=== PATIENT | male | born 1950 | race Caucasian/White ===

== ENCOUNTER 2017-09-15 15:55 | Emergency (ER) | payer OTHER ==
[2017-09-15] MEDS ORDERED: PANTOPRAZOLE SODIUM 40 MG VIAL IVP ONE (16:10)
[2017-09-15] MEDS ORDERED: NS 500 ML IV ONE (16:10)
--- NOTE | 2017-09-15 16:28 | CPEKG ---
Heart Rate: 70 RR Interval: 857 P-R Interval: 160 QRSD Interval: 72 QT Interval: 404 QTC Interval: 436 P [place]: 35 QRS [place]: 49 T Wave [place]: 8 EKG Severity - BORDERLINE ECG - EKG Impression: SINUS RHYTHM EKG Impression: PROBABLE LEFT ATRIAL ABNORMALITY Electronically Signed By: Chip Moulton 15-Sep-2017 16:49:13
[2017-09-15 16:33] LABS: PLATELET COUNT 187 10^3/uL (150-400)
--- NOTE | 2017-09-15 16:33 | EDPHY ---
H & P Time Seen by Provider: 09/15/17 16:09 HPI/ROS: HPI Black tarry stools, headache, forgetfulness. 66-year-old male by private vehicle with his . This patient is from [facility]. He is currently visiting [place] for his son's graduation from college. He has a history of peptic ulcer disease and upper gastrointestinal bleeding. He reports today he had 2 black tarry stools. He reports he has been taking Pepto-Bismol. He also reports that he has had frontal headaches which she describes as aching and sharp over the last 1-2 months associated with some intermittent blurry vision and forgetfulness. He denies headache currently. He has not vomited. Last bowel movement was prior to arrival. Last meal was 3 hr ago. He has not had any significant abdominal pain. He has felt intermittently lightheaded today. ROS: Constitutional: No fever, no chills. As above. Eyes: No discharge. No changes in vision. ENT: No sore throat. No nasal congestion or rhinorrhea. Respiratory: No cough. No shortness of breath. Cardiac: No chest pain, no palpitations. Gastrointestinal: No abdominal pain, no vomiting, no diarrhea. As above. Genitourinary: No hematuria. No dysuria or increased frequency with urination. Musculoskeletal: No back pain. No neck pain. No myalgias or arthralgias. Skin: No rashes. Neurological: As above. No focal weakness or altered sensation. Past medical history: Peptic ulcer disease, upper gastrointestinal bleeding, lower back pain, cholecystectomy, hypertension. Social history: Nonsmoker. No alcohol. Here with his . As above. 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 Physical Exam: General Appearance: Alert, no distress. This patient is responding to questions appropriately and in full sentences. This patient appears well- hydrated and well-nourished. Eyes: Pupils equal and round no pallor or injection. No lid edema, erythema or injection. Respiratory: There are no retractions, lungs are clear to auscultation with good air movement bilaterally. Cardiovascular: Regular rate and rhythm. No murmur. Gastrointestinal: Abdomen is soft and nontender, no masses, bowel sounds normal. No focal tenderness at McBurney's point. No Grover sign. Rectal exam: Normal tone. Blackish stool, not tarry or melenic. No gross blood. Neurological: Motor sensory function is grossly intact. Cranial nerves are normal. Gait is normal. Skin: Warm and dry, no rashes. Prior scars from cutting on both for. Musculoskeletal: Neck is supple and nontender. Extremities are symmetrical. All joints range without pain or impingement. Psychiatric: No agitation. No depression. Database: EKG: EKG time is 4:25 p.m.; EKG shows a narrow complex normal sinus rhythm with a ventricular rate of 70. The [place], QRS, QT intervals are within normal limits. There are no ST-T wave changes indicative of ischemic or injury pattern. No evidence of right heart strain. Interpreted by me. Imaging: CT scan of head without contrast: Negative. Results were discussed with staff radiologist Dr. Sandoval Eldridge. Procedures: Emergency department course: Vital signs reviewed and are normal. IV was placed. He was started on IV normal saline with 500 cc to be given over the next hour. He will be given 80 mg of Protonix IV for likely upper gastrointestinal bleeding. He consents for CT imaging of his brain as part of his headache workup. EKG performed and reviewed by myself. Hemoccult stool testing negative for blood. Black stool likely secondary to Pepto-Bismol. 5:30 p.m., patient re-evaluated. Resting comfortably at this time although he is asking for some Phenergan now for nausea and anxiety. He will be given 6.25 mg. He tells me that he feels very anxious. He has to fly home in the next couple of days and is asking for some Valium to help with relaxation while on the plane. I offered to give him a take-home pack of Valium. He also now tells me that he lost his prescription for his muscle relaxer and his atenolol. He asked for 2 different types of muscle relaxers which I do not feel comfortable prescribing him. I agreed to fill his atenolol prescription and I will give him a limited prescription of Flexeril. His remaining emergency department course under my care has been uneventful. Customary return to emergency department precautions were reviewed with him and his ex- thoroughly. Follow-up was discussed. All of his questions were answered. He was discharged from the emergency department in good condition. Differential Diagnosis: The differential diagnosis on this patient includes but is not limited to migraine headache syndrome, dementia, upper gastrointestinal bleeding, anxiety reaction. Subdural hematoma, epidural hematoma, subarachnoid hemorrhage, sagittal sinus thrombosis, cavernous sinus thrombosis, meningitis, encephalitis unlikely. This represents a partial list of diagnoses considered. These considerations are based on history, physical exam, past history, reassessment and diagnostic testing. Smoking Status: Never smoked Constitutional: Initial Vital Signs Temperature (C) 36.6 C 09/15/17 16:04 Heart Rate 74 09/15/17 16:04 Respiratory Rate 16 09/15/17 16:04 Blood Pressure 105/55 L 09/15/17 16:04 O2 Sat (%) 95 09/15/17 16:04 O2 Delivery Mode Room Air Allergies/Adverse Reactions: prochlorperazine [From Compazine] Allergy (Verified 09/15/17 16:03) Home Medications: Medication Instructions Recorded Atenolol 09/15/17 Atenolol 50 mg PO DAILY #20 tablet 09/15/17 Cyclobenzaprine [Flexeril 10 MG 10 mg PO TID #9 tab 09/15/17 (*)] Ibuprofen 09/15/17 Omeprazole 09/15/17 tiZANidine HCL 09/15/17 Medical Decision Making - Diagnostics Imaging Results: Imaging Impressions Head CT 09/15/17 16:11 Impression: 1. No acute intracranial findings. If symptoms persist and clinical suspicion warrants, consider MRI. 2. Minimal atrophy with periventricular and subcortical low attenuation consistent with chronic microvascular ischemic gliosis. Findings discussed with Chip Moulton MD 09/15/2017 at 17:10. - Data Points Laboratory Results: Laboratory Results 09/15/17 16:17 09/15/17 16:17 09/15/17 09/15/17 09/15/17 16:23 16:17 16:17 WBC RBC Hgb POC Hgb 13.9 gm/dL gm/dL (13.7-17.5) Hct POC Hct 41 % % (40-51) MCV MCH MCHC RDW Plt Count MPV Neut % (Auto) Lymph % (Auto) Jerome % (Auto) Eos % (Auto) Baso % (Auto) Nucleat RBC Rel Count Absolute Neuts (auto) Absolute Lymphs (auto) Absolute Monos (auto) Absolute Eos (auto) Absolute Basos (auto) Absolute Nucleated RBC Immature Gran % Immature Gran # PT INR APTT POC Sodium 136 mEq/L mEq/L (135-145) Sodium 136 mEq/L mEq/L (135-145) POC Potassium 4.3 mEq/L mEq/L (3.3-5.0) Potassium 4.8 mEq/L mEq/L (3.5-5.2) POC Chloride 101 mEq/L mEq/L (97-110) Chloride 99 mEq/L mEq/L (97-110) Carbon Dioxide 22 mEq/l mEq/l (22-31) Anion Gap 15 mEq/L mEq/L (8-16) POC BUN 28 mg/dL H mg/dL (7-23) BUN 30 mg/dL H mg/dL (7-23) Creatinine 1.2 mg/dL mg/dL (0.7-1.3) POC Creatinine 1.6 mg/dL H mg/dL (0.7-1.3) Estimated GFR > 60 Glucose 85 mg/dL mg/dL (70-100) POC Glucose 92 mg/dL mg/dL (70-100) Calcium 9.7 mg/dL mg/dL (8.5-10.4) Total Bilirubin 0.3 mg/dL mg/dL (0.1-1.4) Conjugated Bilirubin 0.3 mg/dL mg/dL (0.0-0.5) Unconjugated Bilirubin 0.0 mg/dL mg/dL (0.0-1.1) AST 40 IU/L IU/L (17-59) ALT 64 IU/L IU/L (21-72) Alkaline Phosphatase 112 IU/L IU/L (38-126) Total Protein 8.0 g/dL g/dL (6.3-8.2) Albumin 4.4 g/dL g/dL (3.5-5.0) Stool Occult Bld Scrn Patient ABO/Rh A POSITIVE Antibody Screen NEGATIVE 09/15/17 09/15/17 09/15/17 16:17 16:17 16:15 WBC 6.47 10^3/uL 10^3/uL (3.80-9.50) RBC 3.99 10^6/uL L 10^6/uL (4.40-6.38) Hgb 12.8 g/dL L g/dL (13.7-17.5) POC Hgb Hct 37.1 % L % (40.0-51.0) POC Hct MCV 93.0 fL fL (81.5-99.8) MCH 32.1 pg pg (27.9-34.1) MCHC 34.5 g/dL g/dL (32.4-36.7) RDW 14.7 % % (11.5-15.2) Plt Count 187 10^3/uL 10^3/uL (150-400) MPV 10.9 fL fL (8.7-11.7) Neut % (Auto) 65.5 % % (39.3-74.2) Lymph % (Auto) 20.9 % % (15.0-45.0) Jerome % (Auto) 11.9 % % (4.5-13.0) Eos % (Auto) 1.1 % % (0.6-7.6) Baso % (Auto) 0.3 % % (0.3-1.7) Nucleat RBC Rel Count 0.0 % % (0.0-0.2) Absolute Neuts (auto) 4.24 10^3/uL 10^3/uL (1.70-6.50) Absolute Lymphs (auto) 1.35 10^3/uL 10^3/uL (1.00-3.00) Absolute Monos (auto) 0.77 10^3/uL 10^3/uL (0.30-0.80) Absolute Eos (auto) 0.07 10^3/uL 10^3/uL (0.03-0.40) Absolute Basos (auto) 0.02 10^3/uL 10^3/uL (0.02-0.10) Absolute Nucleated RBC 0.00 10^3/uL 10^3/uL (0-0.01) Immature Gran % 0.3 % % (0.0-1.1) Immature Gran # 0.02 10^3/uL 10^3/uL (0.00-0.10) PT 13.2 SEC SEC (12.0-15.0) INR 0.98 (0.83-1.16) APTT 23.5 SEC SEC (23.0-38.0) POC Sodium Sodium POC Potassium Potassium POC Chloride Chloride Carbon Dioxide Anion Gap POC BUN BUN Creatinine POC Creatinine Estimated GFR Glucose POC Glucose Calcium Total Bilirubin Conjugated Bilirubin Unconjugated Bilirubin AST ALT Alkaline Phosphatase Total Protein Albumin Stool Occult Bld Scrn NEGATIVE (NEGATIVE) Patient ABO/Rh Antibody Screen Medications Given: Discontinued Medications Al Hydroxide/Mg Hydroxide (Maalox Susp) 30 ml PO ONCE ONE Stop: 09/15/17 16:41 Last Admin: 09/15/17 16:55 Dose: 30 ml Hyoscyamine Sulfate (Levsin, Hyomax-Sl) 0.25 mg PO ONCE ONE Stop: 09/15/17 16:41 Last Admin: 09/15/17 16:55 Dose: 0.25 mg Sodium Chloride (Ns) 500 mls @ 0 mls/hr IV EDNOW ONE; Wide Open PRN Reason: Protocol Stop: 09/15/17 16:11 Last Admin: 09/15/17 16:18 Dose: 500 mls Lidocaine (Lidocaine 2% Viscous) 15 ml PO ONCE ONE Stop: 09/15/17 16:41 Last Admin: 09/15/17 16:55 Dose: 15 ml Pantoprazole Sodium (Protonix) 80 mg IVP EDNOW ONE Stop: 09/15/17 16:11 Last Admin: 09/15/17 16:20 Dose: 80 mg Point of Care Test Results: 09/15/17 16:23 POC Sodium 136 POC Potassium 4.3 POC Chloride 101 POC BUN 28 H POC Creatinine 1.6 H POC Glucose 92 Departure - Departure Disposition: Home, Routine, Self-Care Clinical Impression: Headache, Anxiety Condition: Good Instructions: Acute Headache (ED), Anxiety (ED), Dehydration (ED) Additional Instructions: Read and follow provided instructions. Follow-up with your primary care physician when you return home to [place] for re- evaluation. You should obtain a diffusion-weighted noncontrast MRI of your brain at that time as discussed. Take medication as prescribed. Do not drive while taking Flexeril or Valium. Return to the emergency department for worsening symptoms, worsening headache, any loss of sensation or weakness in your extremities or other serious concerns. Referrals: NONE *PRIMARY CARE P,. [Primary Care Provider] - As per Instructions Prescriptions: Atenolol 50 mg PO DAILY #20 tablet Cyclobenzaprine [Flexeril 10 MG (*)] 10 mg PO TID #9 tab
[2017-09-15] MEDS ORDERED: MAG HYDROX/AL HYDROX/SIMETH 30 ML UDCUP PO ONE (16:40)
[2017-09-15] MEDS ORDERED: LIDOCAINE 2% VISCOUS 15 ML UDCUP PO ONE (16:40)
[2017-09-15] MEDS ORDERED: HYOSCYAMINE SULFATE 0.125 MG TAB PO ONE (16:40)
[2017-09-15 16:42] LABS: INR 0.98 (0.83-1.16); PROTIME(PATIENT) 13.2 SEC (12.0-15.0)
[2017-09-15] MEDS ORDERED: PROMETHAZINE HCL 25 MG/ML INJ ONE (17:35)
[2017-09-15] MEDS ORDERED: PROMETHAZINE HCL 25 MG/ML INJ IVP ONE (17:36)
[2017-09-15] MEDS ORDERED: DIAZEPAM 5 MG PREPACK#4 BTL TAKEHOME ONE (17:39)
[2017-09-15 17:40] VITALS: BP 151/84
== END 2017-09-15 18:05 | disposition home or self-care (01) ==
DX: R51 Headache (principal); F41.9 Anxiety disorder, unspecified; E86.9 Volume depletion, unspecified; I10 Essential (primary) hypertension
CPT/HCPCS: 70450; 93005; 96374; 96375; 99285; J2550; 82947-QW